=== PATIENT | female | born 1985 | race Caucasian/White ===

== ENCOUNTER → 2021-02-09 | Outpatient (REF) | payer MEDICARE, OTHER ==
[2021-02-09 18:10] LABS: FREE THYROXINE INDEX 3.2 % (1.3-4.8); T UPTAKE 35 % (30-39); THYROID STIMULATING HORMONE 0.457 uIU/ML (0.358-3.740); THYROXINE (T4) 9.1 UG/DL (4.5-12.0)
[2021-02-09 18:21] LABS: HEMATOCRIT 40.1 % (36.0-47.0); HEMOGLOBIN 13.1 g/dl (12.0-15.5); MEAN CORPUSCULAR HEMOGLOBIN 29.5 pg (27.0-33.0); MEAN CORPUSCULAR HGB CONC 32.7 g/dl (32.0-36.5); MEAN CORPUSCULAR VOLUME 90.3 fl (80.0-96.0); PLATELET COUNT, AUTOMATED 333 10^3/uL (150-450); RED BLOOD COUNT 4.44 10^6/uL (4.00-5.40); WHITE BLOOD COUNT 13.5 10^3/uL (4.0-10.0)
[2021-02-09 18:51] LABS: HEPATITIS C VIRUS ABY INDEX < 0.0 INDEX (<0.8)
[2021-02-09 18:52] LABS: HIV 1&2 SCREEN CENTAUR NEGATIVE (NEGATIVE)
== END ==
LOC: M PLALAB 15:51
PROVIDERS: ATTEND Advanced Practice Midwife
DX: Z36.89 Encounter for other specified antenatal screening (principal); Z3A.08 8 weeks gestation of pregnancy; Z79.899 Other long term (current) drug therapy

== ENCOUNTER → 2021-03-09 | Outpatient (REF) | payer MEDICARE, OTHER | LOC: M SFHCWAGY 15:53 | PROVIDERS: ATTEND Advanced Practice Midwife | DX: Z36.89 Encounter for other specified antenatal screening (principal); Z3A.08 8 weeks gestation of pregnancy; Z11.3 Encounter for screening for infections with a predominantly sexual mode of transmission; Z79.899 Other long term (current) drug therapy | CPT/HCPCS: 87086; 87490; 87590; G0463 ==

== ENCOUNTER → 2021-05-02 | Outpatient (CLI) | payer MEDICARE, OTHER ==
--- NOTE | 2021-05-02 15:17 | REP ---
INDICATION: ANATOMY. COMPARISON: None. TECHNIQUE: Transabdominal obstetric sonography. FINDINGS: Scanning through the gravid uterus demonstrates a viable single intrauterine gestation in variable lie. motion is observed and heart rate is recorded at 149 beats per minute. A posterior placenta is seen, grade 1, without evidence of placenta previa. Closed cervical length is measured at 6.0 cm transabdominally. No extrauterine abnormality is observed. Amniotic fluid is subjectively normal. No anomaly is seen. The following anatomic structures are identified and felt to be sonographically unremarkable: cranium, choroid plexus, cavum, cerebellum and posterior fossa, face and profile, lungs, four-chamber heart with left and right ventricular outflow tract views, diaphragm, left-sided stomach, abdominal wall cord insertion, three-vessel umbilical cord, kidneys and bladder, spine, and upper and lower extremities. Biometry chart: BPD 4.8 cm, 20 weeks 4 days Abdominal circum come Sofia 15.3 cm, 20 weeks 3 days Head circumference 18.1 cm, 20 weeks 3 days Femur length 3.3 cm, 20 weeks 3 days Humeral length 3.1 cm, 20 weeks 1 day HC AC ratio normal 1.18 Cephalic index normal 0.74 Estimated weight 356 g, 0 lb 12 oz, 56 percentile for 20 weeks 2 days IMPRESSION: Viable single intrauterine gestation at 20 weeks 3 days by today's composite sonographic criteria. FARHANA by today's sonography 16 September 2021. No complication identified. <Electronically signed by Rayray Amezquita > 05/02/21 [id number]
== END ==
LOC: M WHC 12:50
PROVIDERS: ATTEND Advanced Practice Midwife
DX: Z36.9 Encounter for antenatal screening, unspecified (principal); Z3A.20 20 weeks gestation of pregnancy

== ENCOUNTER → 2021-06-05 | Outpatient (REF) | payer MEDICARE, OTHER | LOC: M PLALAB 14:18 | PROVIDERS: ATTEND Obstetrics & Gynecology | DX: Z36.89 Encounter for other specified antenatal screening (principal); Z3A.25 25 weeks gestation of pregnancy ==

== ENCOUNTER → 2021-08-09 | Outpatient (CLI) | payer MEDICARE, OTHER ==
[~2021-08-09] MED LIST: COLA100C5 PO; IBUP80TA PO; OXYC1TAB23 PO; PRENTAB9 PO; ZOFR4TAB16 PO
[2021-08-09 18:30] LABS: HEMATOCRIT 32.7 % (36.0-47.0); HEMOGLOBIN 10.7 g/dl (12.0-15.5); MEAN CORPUSCULAR HEMOGLOBIN 28.1 pg (27.0-33.0); MEAN CORPUSCULAR HGB CONC 32.7 g/dl (32.0-36.5); MEAN CORPUSCULAR VOLUME 85.8 fl (80.0-96.0); PLATELET COUNT, AUTOMATED 272 10^3/uL (150-450); RED BLOOD COUNT 3.81 10^6/uL (4.00-5.40); WHITE BLOOD COUNT 13.7 10^3/uL (4.0-10.0)
== END ==
LOC: M PLALAB 15:00
PROVIDERS: ATTEND Obstetrics & Gynecology
DX: O26.843 Uterine size-date discrepancy, third trimester (principal); Z3A.34 34 weeks gestation of pregnancy
CPT/HCPCS: 36415; 85027; G0463

== ENCOUNTER 2021-08-25 17:06 | Outpatient (CLI) | payer MEDICARE, OTHER ==
[~2021-08-25] VITALS: Ht 154.9 cm; Wt 70.9 kg
[2021-08-25] MEDS ORDERED: PRENTAB9 PO (17:27)
[2021-08-25] MEDS ORDERED: HOME MED LIST COMPLETE! XX SCH (18:00)
--- NOTE | 2021-08-25 19:04 | REP ---
INDICATION: growth < 3% COMPARISON: 08/25/2021 at 2:18 p.m. TECHNIQUE: Transabdominal obstetrical ultrasound with color Doppler evaluation. FINDINGS: Examination demonstrates a single live intrauterine in cephalic presentation. motion is identified by technologist. Placenta is noted posterior and grade 2 without evidence for placenta previa or abruption. Amniotic fluid volume is normal. Cervix measures 4.3 cm in length and appears closed.. Selected gestational age: 36 weeks 5 days with FARHANA 09/17/2021. FHR equals 150 beats per minute. SERGE: 11.1 cm (7.6-24.5) Umbilical artery SD ratio: 2.33 (1.60-3.45) Biophysical profile score: 8/8 IMPRESSION: Single live advanced gestation in cephalic presentation. Amniotic fluid volume within normal limits. Biophysical profile score 8/8. <Electronically signed by Bryan Ramesh > 08/25/21 [id number]
--- NOTE | 2021-08-25 19:12 | IPNPDOC ---
Text Note Date of Service The patient was seen on 08/25/21. NOTE Outpatient 35yo G1 FARHANA 09/17/2021. Presents from office for monitoring due to growth <3% with nonreactive NST. Denies LOF, bleeding or regular UC. Reports good movement. Cat I tracing BPP 8/, SERGE 11.1 Reviewed pt status with Dr Antunez. Discharge home, scheduled for IOL Saturday. Protocol reviewed After hours access, TEE, daily FKC, warnings reviewed. Lupe Gallegos CNM Aug 25, 2021 19:12
[2021-08-29] MEDS ORDERED: ZOFR4TAB16 PO (23:47)
[2021-09-01] MEDS ORDERED: IBUP80TA PO (05:25)
[2021-09-01] MEDS ORDERED: OXYC1TAB23 PO (05:25)
[2021-09-02] MEDS ORDERED: COLA100C5 PO (12:03)
== END 2021-08-25 19:34 | disposition home or self-care (01) ==
LOC: M LDO 17:06
PROVIDERS: ATTEND Advanced Practice Midwife
DX: O36.5939 Maternal care for other known or suspected poor fetal growth, third trimester, other fetus (principal); Z3A.00 Weeks of gestation of pregnancy not specified
CPT/HCPCS: 59025; 76815; 76816; 76819; 76820; G0463

== ENCOUNTER → 2021-08-25 | Outpatient (CLI) | payer MEDICARE, OTHER ==
--- NOTE | 2021-08-25 14:45 | REP ---
INDICATION: GROWTH SIZE DATE DISCREPANCY COMPARISON: 05/02/2021 TECHNIQUE: Transabdominal obstetrical ultrasound with color Doppler evaluation. FINDINGS: Examination demonstrates a single live intrauterine in cephalic presentation. motion is identified by technologist. Placenta is noted posterior and grade 2 without evidence for placenta previa or abruption. Amniotic fluid volume is normal. Cervix measures 4.4 cm in length and appears closed.. Selected gestational age: 36 weeks 5 days with FARHANA 09/17/2021. Gestational age by current measurements 34 weeks 3 days with FARHANA 10/03/2021. FHR equals 147 beats per minute. BPD: 8.6 cm at 34 weeks 4 days HC: 30.5 cm at 34 weeks 0 days AC: 30.5 cm at 34 weeks 3 days FL: 6.8 cm at 34 weeks 5 days HL: 5.9 cm at 34 weeks 3 days HC/AC: 1.00 Estimated weight 2448 grams (less than 3rdpercentile). SERGE: 10.0 cm Umbilical artery SD ratio: 2.08 (1.60-3.45) IMPRESSION: Single live intrauterine in cephalic presentation. Less than expected interval growth is noted. <Electronically signed by Bryan Ramesh > 08/25/21 [id number]
== END ==
LOC: M WHC 14:18
PROVIDERS: ATTEND Obstetrics & Gynecology
DX: O26.843 Uterine size-date discrepancy, third trimester (principal); Z3A.34 34 weeks gestation of pregnancy